=== PATIENT | male | born 1955 | race Caucasian/White ===

== ENCOUNTER 2017-06-12 09:16 | Emergency (ER) | payer OTHER ==
[~2017-06-12 09:16] MED LIST: CHOL1CAP57 PO; CITA40TA4 PO; DOCU100C31 PO; FOLI1TAB8 PO; HYDR2.5C37 PR; LAMO150T PO; MULTTAB58 PO; QUET1TAB10 PO; QUET5TAB PO; RANI150T2 PO; REGULOID PO
[2017-06-12 09:28] VITALS: BP 113/72; Ht 172.7 cm
[2017-06-12] MEDS ORDERED: [UNRECOGNIZED DRUG - CODE] PO (09:35)
[2017-06-12] MEDS ORDERED: MELATAB2 PO (09:35)
--- NOTE | 2017-06-12 09:55 | EMERGENCY ROOM VISIT NOTE ---
History Report prepared by [place]: Ferny Thornton Under the Supervision of: Dr. Jad Rodriguez M.D. First contact with patient: 09:30 Chief Complaint: FALL Stated Complaint: FALL History of Present Illness The patient is a 62 year old male who presents to the Emergency Room with complaints of constant wrist pain following a fall occurring an hour and a half ago. Per assisted living caregiver, the patient was outside on a patio smoking this morning. He notes that the patient went to go put out the cigarette, lost his balance, and fell. He reports that the patient hit his head but did not lose consciousness. He states that the patient is not on any blood thinners. HPI limited secondary to dementia. Source of History: caregiver History Limited By: dementia Onset: an hour and a half ago Position: other (wrist) Timing: constant Associated Symptoms: No LOC Review of Systems ROS limited secondary to dementia. Past Medical & Surgical Medical Problems: (1) Dementia Old medical records were reviewed. Nurse's notes were reviewed and I agree with. Family History No pertinent family history stated. Social History Smoking Status: Current Every Day Smoker Alcohol Use: none Housing Status: assisted living Occupation Status: retired, disabled Current/Historical Medications Scheduled Cholecalciferol (Vitamin D3), 1,000 INTER.UNIT PO QAM Citalopram (Citalopram Hydrobromide), 40 MG PO QAM Docusate Sodium (Docusate Sodium), 100 MG PO BID Folic Acid (Folvite), 1 MG PO QPM Hydrocortisone 2.5% (Rectal) (Anusol-Hc 2.5%), 1 [facility] BID Lamotrigine (Lamictal), 150 MG PO QPM Melatonin (Melatonin Maximum Strengt), 1 TAB PO HS Multiple Vitamin (Multivitamin), 1 TAB PO QPM Psyllium (Reguloid), 1 TBS PO DAILY Quetiapine Fumarate (Seroquel), 200 MG PO QPM Quetiapine Fumarate (Seroquel), 50 MG PO QAM Ranitidine HCl (Ranitidine HCl), 150 MG PO QPM Allergies Coded Allergies: No Known Allergies (Unverified , 06/12/17) Physical Exam Vital Signs Date Time Temp Pulse Resp B/P (MAP) Pulse Ox O2 Delivery O2 Flow Rate FiO2 06/12/17 09:28 113/72 Physical Exam General: Non-ill appearing 62 year old male in no acute distress. Mildly agitated, walking around the room, baseline dementia, denies complaints. HEENT: Normal cephalic atraumatic. Pupils are equal round and reactive to light. Extraocular movements are intact. Oropharynx is pink with moist mucous membranes. No swelling of the mouth lips or tongue. Neck: Supple with a midline trachea. No meningeal signs or stiffness, no JVD or bruits. No Stridor. No external signs of trauma. Chest: Clear to auscultation bilaterally. No wheezes or rhonchi. No increased work of breathing. Heart: regular rate and rhythm. Abdomen: Soft nontender, nondistended without rebound guarding or rigidity. Extremities: No cyanosis clubbing or edema. No calf tenderness or assymetry. Left wrist is nontender, no swelling. Spine/Back. Non tender to palpation. No CVA tenderness Skin: Good turgor without rashes. Neurologic exam: Cranial nerves two through 12 are intact. Motor and sensation are intact and symmetrical throughout. Medical Decision & Procedures ED Course 0933: Past medical records reviewed. The patient was evaluated in room B7, and a complete history and physical examination were performed. 1008: Upon reevaluation, the patient is stable. I discussed the results and treatment plan with him and his caregiver. They both verbalized agreement of the treatment plan. The patient was discharged home. Medical Decision Differential diagnoses include: closed head injury, concussion, orthopedic injury, and intracranial hemorrhage. This patient comes in as described above. He was placed in room B7. He suffered from a fall and hit his head and may have injured his wrist. He does have severe dementia and is walking around the room and somewhat agitated that the caregiver says is baseline . He is difficult to even examine as he is hypermobile. On exam, he has no external signs of trauma. He has normal motor motor and sensation and cranial nerves. His wrist is unremarkable. He has no complaints. I do think he go home at this point and do not think we need to do a CAT scan of his head. I encouraged her to bring him back if he has worsening of symptoms, not acting like self, vomiting, any new problems or concerns. They 're happy with plan and he was discharged to home. Blood Pressure Screening Patient's blood pressure: Normal blood pressure Blood pressure disposition: Did not require urgent referral Impression Primary Impression: Concussion Scribe Attestation The scribe's documentation has been prepared under my direction and personally reviewed by me in its entirety. I confirm that the note above accurately reflects all work, treatment, procedures, and medical decision making performed by me. Departure Information Dispostion Home / Self-Care Referrals Layton Pete M.D. (PCP) Forms HOME CARE DOCUMENTATION FORM, IMPORTANT VISIT INFORMATION Patient Instructions My [facility] Additional Instructions Rest. Return if: Acting different than baseline, sleepiness, vomiting, increasing pain , any new problems or concerns. Follow-up with his doctor doctor Wednesday for recheck
== END 2017-06-12 09:50 | disposition home or self-care (01) ==
LOC: C.EDB 09:18
DX: S06.0X9A Concussion with loss of consciousness of unspecified duration, initial encounter (principal); W19.XXXA Unspecified fall, initial encounter; Y93.89 Activity, other specified; Y99.8 Other external cause status; Y92.128 Other place in nursing home as the place of occurrence of the external cause; F03.90 Unspecified dementia, unspecified severity, without behavioral disturbance, psychotic disturbance, mood disturbance, and anxiety; F17.200 Nicotine dependence, unspecified, uncomplicated